=== PATIENT | female | born 1965 | race Caucasian/White ===

== ENCOUNTER → 2017-01-24 | Outpatient (CLI) | payer MEDICAID ==
[2016-04-25 21:00] VITALS: BP 138/84
--- NOTE | 2017-01-24 16:58 | MRI ---
HISTORY: Brachial neuritis, unable to raise her left arm Study: MRI cervical spine without contrast Comparison: Cervical radiographs 11/25/2016 Technique: Multiplanar multisequence MRI of the cervical spine was obtained utilizing standard [facility] protocol. Findings: Alignment of the cervical spine is normal. No abnormal cord or marrow signal is identified. Verteb ral body heights are preserved without evidence of fracture. The prevertebral and paraspinal soft ti ssues are unremarkable. The disc spaces are preserved. With respect to the brachial plexus there is no evidence of edema or mass to explain the patient's symptoms. There is no edema in the surroundin g neck were shoulder muscles. C2 -- C3: No significant stenosis identified. C3 -- C4: No significant stenosis identified. C4 -- C5: No significant stenosis identified. C5 -- C6: No significant stenosis identified. C6 -- C7: No significant stenosis identified. C7 -- T1: No significant stenosis identified. IMPRESSION: 1. No significant spinal or foraminal stenosis identified. 2. No signal abnormalities associated with the brachial plexus or surrounding musculature. Reported By:
== END ==
LOC: RAD 14:44
PROVIDERS: ATTEND Neurological Surgery
DX: M54.12 Radiculopathy, cervical region (principal)
CPT/HCPCS: 72141

== ENCOUNTER → 2017-06-03 | Outpatient (CLI) | payer MEDICAID ==
[2016-04-25 21:00] VITALS: BP 138/84
--- NOTE | 2017-06-03 18:00 | RAD ---
HISTORY: Right femur pain after fall 3 days ago Study: Four views of the right femur Comparison: None Findings: No acute cortical disruption or dislocation can be identified. The femoral head and neck are unrema rkable in their appearance. No significant soft tissue swelling or injury can be seen. IMPRESSION: 1. Negative exam of the femur. Reported By:
--- NOTE | 2017-06-03 18:00 | RAD ---
HISTORY: Right hip pain after fall Study: AP pelvis and frog-leg right hip Comparison: None Findings: A single frontal view of the pelvis demonstrates the pelvic ring to be intact. No evidence for acut e cortical disruption or dislocation of the hip can be observed. Frog leg views of the hip fails to demonstrate evidence for fracture or significant joint abnormality. Impression: 1. Negative exam. Reported By:
--- NOTE | 2017-06-03 18:02 | RAD ---
History: Low back pain after fall 3 days ago Study: Five views of the lumbar spine. Comparison: November 25, 2016 Findings: There is unchanged severe L5-S1 disc space narrowing with osteophyte formation. There is n o fracture or compression. There are osteophytes about the L4-5 and L5-S1 facet joints. The sacroili ac joints are unremarkable. Impression: Unchanged severe L5-S1 degenerative disc disease and lower lumbar facet joint osteoarthr itis Reported By:
== END ==
LOC: RAD 17:26
PROVIDERS: ATTEND Family Medicine
DX: M51.37 Other intervertebral disc degeneration, lumbosacral region (principal); M47.896 Other spondylosis, lumbar region; W19.XXXA Unspecified fall, initial encounter; T14.8 Other injury of unspecified body region
CPT/HCPCS: 72110; 73501; 73552

== ENCOUNTER → 2017-06-13 | Outpatient (CLI) | payer MEDICAID ==
[2016-04-25 21:00] VITALS: BP 138/84
[2017-06-13 11:04] LABS: BLOOD UREA NITROGEN 17 mg/dL (7-18); CALCIUM 8.7 mg/dL (8.5-10.1); CARBON DIOXIDE 31.3 mmol/L (21-32); CHLORIDE 102 mmol/L (98-107); CREATININE 0.98 mg/dL (0.55-1.02); GLUCOSE 78 mg/dL (65-99); MAGNESIUM 2.4 mg/dL (1.7-2.9); SODIUM 138 mmol/L (136-145); eGFR BLACK RACES > 60 (>60); eGFR NON BLACK RACES > 60 (>60)
== END | disposition home or self-care (01) ==
LOC: LAB 10:20
PROVIDERS: ATTEND Family Medicine
DX: R25.2 Cramp and spasm (principal); R53.83 Other fatigue
CPT/HCPCS: 36415; 80048; 83735

== ENCOUNTER 2018-01-09 09:35 | Emergency (ER) | payer MEDICAID ==
[2018-01-09 09:41] VITALS: BP 124/83; BMI 34.1
[2018-01-09] MEDS ORDERED: DUONEB 0.5 MG/3 MG ONE (09:42)
[2018-01-09] MEDS ORDERED: DUONEB 0.5 MG/3 MG NEB ONE (09:51)
--- NOTE | 2018-01-09 09:58 | DR.URIAD ---
HPI - Time Seen Time seen: 09:50 - PCP Primary Care Physician: amelia - HPI Comment HPI Comment: WORSE TODAY. - Complaint Chief Complaint Doctors Comments: COUGH TIMES 4 DAYS. INJURY RIGHT ANKLES TIMES 2 DAYS. Chief Complaint:: patient stated she has been short of breath for 4 days ago and today it has been worse - Reviewed Nurses Notes Reviewed: Yes - Source History Provided: Patient - Mode of Arrival Mode of Arrival: Ambulatory - Timing Onset of Chief Complaint: 01/05/18 - Context Recent Treated Infections: None History of Respiratory: None - Quality Quality of Cough: Nonproductive Rhinorrhea: None Shortness of Breath: Mild - Associated Signs and Symptoms Other Signs and Symptoms: Cough PMH - PMH Past Medical History: Yes Past Medical History: Migraines, Hypertension Past Surgical History: Yes Surgical History: Appendectomy, Cholecystectomy, Hysterectomy - Family History History of Family Medical Conditions: Yes Family Medical History: Diabetes Mellitus, Cancer, Heart Failure, Hypertension - Social History Does patient currently use any type of tobacco product: No Have you used tobacco products in the last 12 months: No Type of Tobacco Use: None Does any household member use tobacco: No Alcohol Use: None Do you use any recreational Drugs:: No Lives With: Family Lives Where: Home - infectious screening In the last 2 months have you had wt loss of >10#?: NO Have you had fever, night sweats or hemotysis?: No Have you traveled outside the country in the last 6 months?: No Isolation: Standard ROS - Review of Systems Constitutional: Fatigue Eyes: No Symptoms Reported. negative: Eye Pain, Discharge ENTM: Nose Congestion. negative: Ear Pain, Throat Pain Respiratoy: Non-Productive Cough, Short of Breath. negative: Wheezing, Hemoptysis Cardiovascular: No Symptoms Reported Gastrointestinal/Abdominal: No Symptoms Reported Genitourinary: No Symptoms Reported Neurological: No Symptoms Reported Musculoskeletal: No Symptoms Reported Integumentary: No Symptoms Reported Hematologic/Lymphatic: No Symptoms Reported Endocrine: No Symptoms Reported All Other Systems: Reviewed and Negative PE - Vital Signs Vitals: Temperature 98.9 F Pulse Rate 78 Respiratory Rate 20 Blood Pressure [Right Arm] 110/85 Blood Pressure [Left Arm] 130/96 Blood Pressure 124/83 O2 Sat by Pulse Oximetry 96 - General Limitations: No Limitations General Appearance: Alert - Head Head Exam: Normal Inspection - Eyes Eye exam: Normal Appearance - ENT ENT Exam: Normal External Ear Exam External Ear Exam: Normal External Inspection TM/Canal Exam: Bilateral Normal Nose Exam: Normal Nose Exam Mouth Exam: Normal Inspection Throat Exam: Normal Inspection - Neck Neck Exam: Trachea Midline - Respiratory Respiratory Exam: Normal Lung Sounds Bilat Respiratory Exam: Bilateral Rhonchi (TRASMITTED SOUNDS) - Cardiovascular Cardiovascular Exam: Regular Rate, Normal Rhythm, Normal Heart Sounds - Abdominal Exam Abdominal Exam: Normal Bowel Sounds, Soft. negative: Tenderness - Extremeties Extremities Exam: Tenderness (RT [employer]LL[employer]ER.) - Back Back Exam: Normal Inspection - Neurologic Neurological Exam: Alert, Oriented X3 - Psychiatric Psychiatric Exam: Normal Affect, Normal Mood - Skin Skin Exam: Normal Color MDM - Differential Diagnosis Differential Diagnosis: Otitis media, Streptococcal pharyngitis, Viral pharyngitis, Pneumonia, Sinsusitis (BRONCHITIS, PNEUMONIA), URI Course - Treatment Treatment: SEE ORDERS. - Education/Counseling Education/Counseling: Patient, Education Educated On: Diagnosis, Needs for Follow Up ROR - Labs Reviewed Result Diagrams: 01/09/18 10:04 01/09/18 10:04 Laboratory: WBC 5.8 X10^3/uL (3.6-10.0) 01/09/18 10:04 RBC 3.82 X10^6/uL (3.5-5.4) 01/09/18 10:04 Hgb 9.8 g/dL (12.0-16.0) L 01/09/18 10:04 Hct 29.5 % (36.0-47.0) L 01/09/18 10:04 MCV 77.2 fL (80.0-100.0) L 01/09/18 10:04 MCH 25.5 pg (27.0-34.0) L 01/09/18 10:04 MCHC 33.0 g/dL (33.0-35.0) 01/09/18 10:04 RDW 15.6 % (11.6-16.5) 01/09/18 10:04 Plt Count 272 X10^3/uL (150.0-450.0) 01/09/18 10:04 Plt Count Comment Adequate (ADEQUATE) 01/09/18 10:04 MPV 7.6 fL (7.4-11.0) 01/09/18 10:04 Neut % (Auto) 46.1 % (42.0-75.0) 01/09/18 10:04 Lymph % (Auto) 44.5 % (21.0-51.0) 01/09/18 10:04 [place] % (Auto) 7.1 % (0.0-13.0) 01/09/18 10:04 Eos % (Auto) 1.8 % (0.9-2.9) 01/09/18 10:04 Baso % (Auto) 0.5 % (0.2-1.0) 01/09/18 10:04 Neut # (Auto) 2.7 x10^3/uL (2.2-4.8) 01/09/18 10:04 Lymph # (Auto) 2.6 X10^3/uL (1.3-2.9) 01/09/18 10:04 [place] # (Auto) 0.4 x10^3/uL (0.3-0.8) 01/09/18 10:04 Eos # (Auto) 0.1 x10^3/uL (0.0-0.2) 01/09/18 10:04 Baso # (Auto) 0.0 X10^3/uL (0.0-0.1) 01/09/18 10:04 Absolute Nucleated RBC 0.0 /100WBC 01/09/18 10:04 Plt Morphology Comment Normal (NORMAL) 01/09/18 10:04 RBC Morphology Abnormal (NORMAL) A 01/09/18 10:04 Hypochromasia Slight A 01/09/18 10:04 Sodium 141 mmol/L (136-145) 01/09/18 10:04 Corrected Sodium TNP 01/09/18 10:04 Potassium 3.9 mmol/L (3.5-5.1) 01/09/18 10:04 Chloride 104 mmol/L (98-107) 01/09/18 10:04 Carbon Dioxide 27.1 mmol/L (21-32) 01/09/18 10:04 BUN 17 mg/dL (7-18) 01/09/18 10:04 Creatinine 1.04 mg/dL (0.55-1.02) H 01/09/18 10:04 Est GFR (MDRD) Af Amer > 60 (>60) 01/09/18 10:04 Est GFR (MDRD) Non-Af 60 (>60) 01/09/18 10:04 Glucose 96 mg/dL (65-99) 01/09/18 10:04 Calcium 8.1 mg/dL (8.5-10.1) L 01/09/18 10:04 Corrected Calcium 8.8 mg/dL (8.5-10.1) 01/09/18 10:04 Total Bilirubin 0.10 mg/dL (0.2-1.0) L 01/09/18 10:04 AST 13 Units/L (15-37) L 01/09/18 10:04 ALT 19 Units/L (12-78) 01/09/18 10:04 Alkaline Phosphatase 109 Units/L (46-116) 01/09/18 10:04 Total Protein 6.6 g/dL (6.4-8.2) 01/09/18 10:04 Albumin 3.1 g/dL (3.4-5.0) L 01/09/18 10:04 Globulin 3.5 g/dL (2.5-4.5) 01/09/18 10:04 Albumin/Globulin Ratio 0.9 Ratio (1.1-2.1) L 01/09/18 10:04 - XRAY XRAY Interpreted by: Radiologist XRAY Findings: REPORT DISCUSS WITH PATIENT. - Diagnosis Discharge Problem: Bronchitis Sprain of ankle, right Qualifiers: Encounter type: initial encounter Involved ligament of ankle: unspecified ligament Qualified Code(s): S93.401A - Sprain of unspecified ligament of right ankle, initial encounter - Discharge Plan Disposition: 01 HOME, SELF-CARE Condition: Stable Prescriptions: Azithromycin [Zithromax] 1 dose PO DAILY #6 tab - Follow ups/Referrals Follow ups/Referrals: HIGINIO JONES [Primary Care Provider] - 3 days - Instructions Instructions: Ankle Sprain, [id number], Acute Bronchitis, Adult, [id number] Additional Instructions: RETURN TO ED IF WORSE.
[2018-01-09 10:23] LABS: BASOPHILS % (AUTO) 0.5 % (0.2-1.0); EOSINOPHILS # (AUTO) 0.1 x10^3/uL (0.0-0.2); EOSINOPHILS % (AUTO) 1.8 % (0.9-2.9); HEMATOCRIT 29.5 % (36.0-47.0); HEMOGLOBIN 9.8 g/dL (12.0-16.0); LYMPHOCYTES # (AUTO) 2.6 X10^3/uL (1.3-2.9); LYMPHOCYTES % (AUTO) 44.5 % (21.0-51.0); MEAN CORPUSCULAR HEMOGLOBIN 25.5 pg (27.0-34.0); MEAN CORPUSCULAR VOLUME 77.2 fL (80.0-100.0); MEAN PLATELET VOLUME 7.6 fL (7.4-11.0); MONOCYTES # (AUTO) 0.4 x10^3/uL (0.3-0.8); MONOCYTES % (AUTO) 7.1 % (0.0-13.0); NEUTROPHILS # (AUTO) 2.7 x10^3/uL (2.2-4.8); NEUTROPHILS % (AUTO) 46.1 % (42.0-75.0); PLATELET COUNT 272 X10^3/uL (150.0-450.0); RED BLOOD COUNT 3.82 X10^6/uL (3.5-5.4); RED CELL DISTRIBUTION WIDTH 15.6 % (11.6-16.5); WHITE BLOOD COUNT 5.8 X10^3/uL (3.6-10.0)
[2018-01-09 10:27] LABS: ALANINE AMINOTRANSFERASE 19 Units/L (12-78); ALBUMIN 3.1 g/dL (3.4-5.0); ALKALINE PHOSPHATASE 109 Units/L (46-116); ASPARTATE AMINO TRANSFERASE 13 Units/L (15-37); BLOOD UREA NITROGEN 17 mg/dL (7-18); CALCIUM 8.1 mg/dL (8.5-10.1); CARBON DIOXIDE 27.1 mmol/L (21-32); CHLORIDE 104 mmol/L (98-107); COR CA(FOR HYPOALB) 8.8 mg/dL (8.5-10.1); CREATININE 1.04 mg/dL (0.55-1.02); SODIUM 141 mmol/L (136-145); TOTAL PROTEIN 6.6 g/dL (6.4-8.2); eGFR BLACK RACES > 60 (>60); eGFR NON BLACK RACES 60 (>60)
[2018-01-09 10:29] LABS: PLATELET MORPHOLOGY COMMENT NORMAL (NORMAL)
[2018-01-09 10:30] LABS: HYPOCHROMASIA SLIGHT
--- NOTE | 2018-01-09 10:39 | RAD ---
History: Shortness of breath and wheezing Study: PA and lateral chest Comparison: February 18, 2016 Findings: There is limited inspiration of clear lungs. There is no edema or effusion. The heart size is normal. No significant bony abnormality is demonstrated. Impression: No active cardiopulmonary disease Reported By:
--- NOTE | 2018-01-09 10:43 | RAD ---
HISTORY: Right ankle pain after twisting injury Study: Right ankle: Three views Comparison: 03/15/2016 Findings: No appreciable soft tissue swelling is present. The malleoli, talar dome and tibial plafond are inta ct. A small calcaneal spur is noted. IMPRESSION: 1. Essentially negative radiographs of the right ankle with a small calcaneal spur, unchanged. Reported By:
== END 2018-01-09 11:30 | disposition home or self-care (01) ==
LOC: ER 09:47
DX: J40 Bronchitis, not specified as acute or chronic (principal); S93.401A Sprain of unspecified ligament of right ankle, initial encounter; Y33.XXXA Other specified events, undetermined intent, initial encounter
CPT/HCPCS: 36415; 71046; 73610; 80053; 85025; 99283; J7620

== ENCOUNTER 2018-02-09 23:03 | Observation (INO) | payer MEDICAID ==
--- NOTE | 2018-02-09 23:11 | DR.GENAD ---
HPI - PCP Primary Care Physician: nfd - Complaint/Symptoms Chief Complaint Doctors Comments: Patient states that she has had sharp pain in her chest for the past three hours. She denies a history of cardipulmonary disease. Chief Complaint:: chest pain swelling in feet - Source History Provided: Patient - Mode of Arrival Mode of Arrival: EMS - Timing Onset of Chief Complaint: 02/06/18 PMH - PMH Past Medical History: Yes Past Medical History: Migraines, Hypertension Past Surgical History: Yes Surgical History: Appendectomy, Cholecystectomy, Hysterectomy - Family History History of Family Medical Conditions: Yes Family Medical History: Diabetes Mellitus, Cancer, Heart Failure, Hypertension - Social History Does patient currently use any type of tobacco product: No Have you used tobacco products in the last 12 months: No Type of Tobacco Use: None Does any household member use tobacco: No Alcohol Use: None Do you use any recreational Drugs:: No Lives With: Family Lives Where: Home - infectious screening In the last 2 months have you had wt loss of >10#?: NO Have you had fever, night sweats or hemotysis?: No Have you traveled outside the country in the last 6 months?: No Isolation: Standard ROS - Review of Systems Constitutional: negative: Diaphoresis Eyes: No Symptoms Reported ENTM: No Symptoms Reported Respiratoy: No Symptoms Reported Cardiovascular: Chest Pain Gastrointestinal/Abdominal: No Symptoms Reported Genitourinary: No Symptoms Reported Neurological: No Symptoms Reported Musculoskeletal: No Symptoms Reported Integumentary: No Symptoms Reported Hematologic/Lymphatic: No Symptoms Reported Endocrine: No Symptoms Reported Psychiatric: No Symptoms Reported All Other Systems: Reviewed and Negative PE - Vital Signs Vitals: Temperature 98.2 F Pulse Rate 78 Respiratory Rate 16 Blood Pressure [Right Arm] 114/78 Blood Pressure [Left Arm] 130/96 Blood Pressure 117/71 O2 Sat by Pulse Oximetry 96 - General Limitations: No Limitations General Appearance: Alert, In No Apparent Distress - Head Head Exam: Normal Inspection, Atraumatic - Eyes Eye exam: Normal Appearance, PERRL, EOMI - ENT ENT Exam: Normal Exam External Ear Exam: Normal External Inspection TM/Canal Exam: Bilateral Normal Nose Exam: Normal Nose Exam Mouth Exam: Normal Inspection Throat Exam: Normal Inspection - Neck Neck Exam: Normal Inspection - Chest Chest Inspection: Normal Inspection - Respiratory Respiratory Exam: Normal Lung Sounds Bilat Respiratory Exam: Bilateral Clear to Auscultation - Cardiovascular Cardiovascular Exam: Regular Rate, Normal Rhythm - Abdominal Exam Abdominal Exam: Normal Inspection, Normal Bowel Sounds Abdominal Tenderness: negative: RUQ, RLQ, LUQ, LLQ, Epigastrium, Suprapubic, Diffuse, Mild, Moderate, Severe, Other - Extremities Extremities Exam: Normal Inspection, Full ROM - Back Back Exam: Normal Inspection, Full ROM - Neurologic Neurological Exam: Alert, Oriented X3, CN II-XII Intact - Psychiatric Psychiatric Exam: Normal Affect, Normal Mood - Skin Skin Exam: Warm, Dry, Intact Course - Reevaluation 1st: Improved ROR - Labs Reviewed Laboratory Results Reviewed?: Yes (low potattium) Result Diagrams: 02/09/18 23:23 02/09/18 23: Laboratory: WBC 6.7 X10^3/uL (3.6-10.0) 02/09/18 23: RBC 3.64 X10^6/uL (3.5-5.4) 02/09/18 23: Hgb 9.1 g/dL (12.0-16.0) L 02/09/18: Hct 28.3 % (36.0-47.0) L 02/09/18 23: MCV 77.7 fL (80.0-100.0) L 02/09/18: MCH 25.1 pg (27.0-34.0) L 02/09/18 23: MCHC 32.3 g/dL (33.0-35.0) L 02/09/18 23: RDW 16.4 % (11.6-16.5) 02/09/18: Plt Count 307 X10^3/uL (150.0-450.0) 02/09/18 23: Plt Count Comment Adequate (ADEQUATE) 02/09/18: MPV 7.5 fL (7.4-11.0) 02/09/18: Neut % (Auto) 55.6 % (42.0-75.0) 02/09/18 23: Lymph % (Auto) 30.4 % (21.0-51.0) 02/09/18: [place] % (Auto) 9.0 % (0.0-13.0) 02/09/18: Eos % (Auto) 4.2 % (0.9-2.9) H 02/09/18 23:23 Baso % (Auto) 0.8 % (0.2-1.0) 02/09/18 23: Neut # (Auto) 3.7 x10^3/uL (2.2-4.8) 02/09/18 23: Lymph # (Auto) 2.0 X10^3/uL (1.3-2.9) 02/09/18 23: [place] # (Auto) 0.6 x10^3/uL (0.3-0.8) 02/09/18 23:23 Eos # (Auto) 0.3 x10^3/uL (0.0-0.2) H 02/09/18 23:23 Baso # (Auto) 0.1 X10^3/uL (0.0-0.1) 02/09/18 23: Absolute Nucleated RBC 0.1 /100WBC 02/09/18 23: Plt Morphology Comment Normal (NORMAL) 02/09/18 23: RBC Morphology Normal (NORMAL) 02/09/18 23:23 Sodium 141 mmol/L (136-145) 02/09/18 23:23 Corrected Sodium TNP 02/09/18 23: Potassium 3.4 mmol/L (3.5-5.1) L 02/09/18 23: Chloride 107 mmol/L (98-107) 02/09/18 23: Carbon Dioxide 23.2 mmol/L (21-32) 02/09/18 23: BUN 18 mg/dL (7-18) 02/09/18 23: Creatinine 1.01 mg/dL (0.55-1.02) 02/09/18 23:23 Est GFR (MDRD) Af Amer > 60 (>60) 02/09/18 23: Est GFR (MDRD) Non-Af > 60 (>60) 02/09/18 23: Glucose 100 mg/dL (65-99) H 02/09/18 23: Calcium 8.2 mg/dL (8.5-10.1) L 02/09/18 23: Corrected Calcium 8.9 mg/dL (8.5-10.1) 02/09/18 23:23 Total Bilirubin 0.20 mg/dL (0.2-1.0) 02/09/18 23:23 AST 16 Units/L (15-37) 02/09/18 23:23 ALT 19 Units/L (12-78) 02/09/18 23:23 Alkaline Phosphatase 98 Units/L (46-116) 02/09/18 23:23 Creatine Kinase 82 Units/L (26-192) 02/09/18 23:23 CK-MB (CK-2) < 1.0 ng/mL (0-4.0) 02/09/18 23: CK/CKMB % Calc 1.2 % (<4) 02/09/18: Troponin I < 0.02 ng/mL (0-1.5) 02/09/18 23:23 Total Protein 6.4 g/dL (6.4-8.2) 02/09/18 23:23 Albumin 3.1 g/dL (3.4-5.0) L 02/09/18 23:23 Globulin 3.3 g/dL (2.5-4.5) 02/09/18 23:23 Albumin/Globulin Ratio 0.9 Ratio (1.1-2.1) L 02/09/18 23:23 TSH 3rd Generation 2.443 uIU/mL (0.358-3.74) 02/09/18 23:23 Specimen Type Clean catch urine 02/10/18 00:06 Urine Color Yellow (YELLOW) 02/10/18 00:06 Urine Appearance Clear (CLEAR) 02/10/18 00:06 Urine pH 7.0 (5.0 - 8.0) 02/10/18 00:06 Ur Specific [place] 1.010 (1.000-1.030) 02/10/18 00:06 Urine Protein Negative (NEGATIVE) 02/10/18 00:06 Urine Glucose (UA) Negative (NEGATIVE) 02/10/18 00:06 Urine Ketones Negative (NEGATIVE) 02/10/18 00:06 Urine Occult Blood Negative (NEGATIVE) 02/10/18 00:06 Urine Nitrite Negative (NEGATIVE) 02/10/18 00:06 Urine Bilirubin Negative (NEGATIVE) 02/10/18 00:06 Urine Urobilinogen Normal (NORMAL) 02/10/18 00:06 Ur Leukocyte Esterase Negative (NEGATIVE) 02/10/18 00:06 - XRAY XRAY Interpreted by: Radiologist (Chest: no acute chest process) - Diagnosis Discharge Problem: Hypokalemia Chest pain Qualifiers: Chest pain type: unspecified Qualified Code(s): R07.9 - Chest pain, unspecified - Discharge Plan Condition: Stable - Follow ups/Referrals Follow ups/Referrals: NFD,None [Primary Care Provider] - 3 days - Instructions
[2018-02-09] MEDS ORDERED: LASIX IVP ONE ×2 (23:16→23:41)
[2018-02-09 23:35] LABS: BASOPHILS # (AUTO) 0.1 X10^3/uL (0.0-0.1); BASOPHILS % (AUTO) 0.8 % (0.2-1.0); EOSINOPHILS # (AUTO) 0.3 x10^3/uL (0.0-0.2); EOSINOPHILS % (AUTO) 4.2 % (0.9-2.9); HEMATOCRIT 28.3 % (36.0-47.0); HEMOGLOBIN 9.1 g/dL (12.0-16.0); LYMPHOCYTES % (AUTO) 30.4 % (21.0-51.0); MEAN CORPUSCULAR HEMOGLOBIN 25.1 pg (27.0-34.0); MEAN CORPUSCULAR HGB CONC 32.3 g/dL (33.0-35.0); MEAN CORPUSCULAR VOLUME 77.7 fL (80.0-100.0); MEAN PLATELET VOLUME 7.5 fL (7.4-11.0); MONOCYTES # (AUTO) 0.6 x10^3/uL (0.3-0.8); NEUTROPHILS # (AUTO) 3.7 x10^3/uL (2.2-4.8); NEUTROPHILS % (AUTO) 55.6 % (42.0-75.0); PLATELET COUNT 307 X10^3/uL (150.0-450.0); RED BLOOD COUNT 3.64 X10^6/uL (3.5-5.4); RED CELL DISTRIBUTION WIDTH 16.4 % (11.6-16.5); WHITE BLOOD COUNT 6.7 X10^3/uL (3.6-10.0)
[2018-02-09 23:50] LABS: BLOOD UREA NITROGEN 18 mg/dL (7-18); CALCIUM 8.2 mg/dL (8.5-10.1); CARBON DIOXIDE 23.2 mmol/L (21-32); CHLORIDE 107 mmol/L (98-107); CREATININE 1.01 mg/dL (0.55-1.02); SODIUM 141 mmol/L (136-145); TROPONIN I < 0.02 ng/mL (0-1.5); eGFR BLACK RACES > 60 (>60); eGFR NON BLACK RACES > 60 (>60)
[2018-02-10 00:01] LABS: PLATELET MORPHOLOGY COMMENT NORMAL (NORMAL)
[2018-02-10 00:05] LABS: ALANINE AMINOTRANSFERASE 19 Units/L (12-78); ALBUMIN 3.1 g/dL (3.4-5.0); ALKALINE PHOSPHATASE 98 Units/L (46-116); ASPARTATE AMINO TRANSFERASE 16 Units/L (15-37); CKMB % 1.2 % (<4); COR CA(FOR HYPOALB) 8.9 mg/dL (8.5-10.1); CREATINE KINASE 82 Units/L (26-192); CREATINE KINASE MB < 1.0 ng/mL (0-4.0); TOTAL PROTEIN 6.4 g/dL (6.4-8.2)
--- NOTE | 2018-02-10 00:13 | RAD ---
Chest, PA and lateral Indication: Chest pain Comparison: 01/09/2018 Findings: The cardiac silhouette is unremarkable. The lungs are clear without focal infiltrate or ple ural effusion. Impression: No acute chest process. Reported By:
[2018-02-10 00:18] LABS: BILIRUBIN,URINE NEGATIVE (NEGATIVE); BLOOD/HEMOGLOBIN,URINE NEGATIVE (NEGATIVE); GLUCOSE, URINE NEGATIVE (NEGATIVE); KETONES,URINE NEGATIVE (NEGATIVE); LEUKOCYTE ESTERASE ,URINE NEGATIVE (NEGATIVE); NITRITES,URINE NEGATIVE (NEGATIVE); PROTEIN,URINE NEGATIVE (NEGATIVE); UROBILINOGEN,URINE NORMAL (NORMAL)
[2018-02-10 00:28] LABS: APPEARANCE,URINE CLEAR (CLEAR); COLOR,URINE YELLOW (YELLOW)
[2018-02-10] MEDS: K-LYTE EFFERVESCENT PO SCH ×2 (00:45→08:24)
[2018-02-10] MEDS ORDERED: ZOFRAN TAB 4 MG PO ONE (00:51)
[2018-02-10] MEDS ORDERED: ZOFRAN TAB 4 MG ONE (00:52)
[2018-02-10 02:30] VITALS: BMI 35.5
[2018-02-10] MEDS: NS 1000 ML 1,000 ML IV SCH ×2 (02:31→15:05)
[2018-02-10 06:18] LABS: CKMB % 1.5 % (<4); CREATINE KINASE 67 Units/L (26-192); CREATINE KINASE MB < 1.0 ng/mL (0-4.0); TROPONIN I < 0.02 ng/mL (0-1.5)
[2018-02-10] MEDS ORDERED: MOTRIN TAB 800 MG PO PRN (08:43)
[2018-02-10 09:20] LABS: ALANINE AMINOTRANSFERASE 19 Units/L (12-78); ALKALINE PHOSPHATASE 87 Units/L (46-116); ASPARTATE AMINO TRANSFERASE 16 Units/L (15-37); BLOOD UREA NITROGEN 14 mg/dL (7-18); CARBON DIOXIDE 25.3 mmol/L (21-32); CHLORIDE 107 mmol/L (98-107); COR CA(FOR HYPOALB) 8.8 mg/dL (8.5-10.1); COR NA(FOR HYPERGLY) 143 mmol/L (136-145); CREATININE 1.01 mg/dL (0.55-1.02); SODIUM 142 mmol/L (136-145); TOTAL PROTEIN 5.9 g/dL (6.4-8.2); eGFR BLACK RACES > 60 (>60); eGFR NON BLACK RACES > 60 (>60)
[2018-02-10] MEDS ORDERED: NORCO 10/325 TAB PO PRN (09:31)
[2018-02-10] MEDS ORDERED: BUDESONIDE FORMOTEROL ENOSTRIL SCH (09:45)
[2018-02-10] MEDS ORDERED: K-DUR TAB 20 MEQ PO SCH (10:00)
[2018-02-10] MEDS ORDERED: ASPIRIN EC 81 MG PO SCH (10:00)
[2018-02-10] MEDS ORDERED: SYNTHROID 50 mcg TAB PO SCH (10:00)
[2018-02-10] MEDS ORDERED: NORVASC TAB 5 MG PO SCH (10:00)
[2018-02-10] MEDS ORDERED: LOPRESSOR TAB 50 MG PO SCH (10:00)
[2018-02-10] MEDS ORDERED: FLONASE NASAL SPRAY ENOSTRIL SCH (10:00)
[2018-02-10] MEDS ORDERED: TOPAMAX PO SCH (11:00)
[2018-02-10] MEDS: KLONOPIN TAB 1 MG PO SCH ×2 (11:01→15:05)
[2018-02-10] MEDS: NEURONTIN CAP 400 MG PO SCH ×2 (11:02→15:05)
[2018-02-10 12:41] LABS: CKMB % 1.5 % (<4); CREATINE KINASE 65 Units/L (26-192); CREATINE KINASE MB < 1.0 ng/mL (0-4.0); TROPONIN I < 0.02 ng/mL (0-1.5)
[2018-02-10] MEDS ORDERED: PROVENTIL NEB TX 0.083% 2.5MG/ 3ML NEB SCH (13:00)
[2018-02-10 15:48] VITALS: BP 108/50
[2018-02-10] MEDS ORDERED: DOXEPIN HCL 150 MG PO SCH (21:00)
[2018-02-10] MEDS ORDERED: PULMICORT NEB TX 0.5 MG NEB SCH (21:00)
[2018-02-10] MEDS ORDERED: PROTONIX TAB 40 MG PO SCH (21:00)
== END 2018-02-10 16:20 | disposition home or self-care (01) ==
LOC: ER 23:03 → MED/SURG 02-10 01:17
PROVIDERS: ADMIT Obstetrics & Gynecology Obstetrics; ATTEND Obstetrics & Gynecology Obstetrics
DX: R07.89 Other chest pain (principal); R60.9 Edema, unspecified
CPT/HCPCS: 36415; 71046; 80053; 81003; 82550; 82553; 84443; 84484; 85025; 93005; 93010; 94640; 94760; 96365; 96374; 96375; 99284; 99285; A4216; A4222; S0181; G0378; J1940; J7613